=== PATIENT | female | born 1955 | race Two or more races ===

== ENCOUNTER 2021-10-06 14:50 | Emergency (ER) | payer OTHER ==
[~2021-10-06] VITALS: Ht 149.9 cm; Wt 62.6 kg
[2021-10-06] MEDS ORDERED: LIPITOR40 MG PO (15:10)
[2021-10-06] MEDS ORDERED: ATORVASTATIN CA10 MG PO (15:10)
[2021-10-06] MEDS ORDERED: LEVOXYL75 MCG PO (15:11)
== END 2021-10-06 17:51 | disposition home or self-care (01) ==
LOC: ER 14:50
DX: N39.0 Urinary tract infection, site not specified (principal); I10 Essential (primary) hypertension; Z88.6 Allergy status to analgesic agent; Z88.8 Allergy status to other drugs, medicaments and biological substances